=== PATIENT | male | born 1995 | race Caucasian/White ===

== ENCOUNTER 2019-11-09 21:48 | Emergency (ER) | payer BC, SELFPAY ==
[2019-11-09] VITALS (7 sets, daily range): BP systolic 154–197; BP diastolic 82–127; PULSE 58–100; RESP 14–16; TEMP 36.8; O2SAT 97–99; BMI 26.1
--- NOTE | 2019-11-09 21:56 | XR_ITS ---
PROCEDURE: XR SHOULDER LT MIN 2V CLINICAL INDICATION: shoulder injury COMPARISON: No exams were available for comparison FINDINGS: Anterior inferior impaction of the humeral head upon the inferior glenoid rim is demonstrated. IMPRESSION: Anterior inferior dislocation of the right shoulder as above Dictated by: Dereck Reid 11/10/2019 09:15 Electronically signed by Dereck Reid in [place] 11/10/2019 09:15
[2019-11-09 22:17] LABS: Basophils # 0.1 K/mm3 (0-0.2); Basophils % 0.5 % (0.1-2.0); Eosinophils # 0.1 K/mm3 (0.0-0.4); Eosinophils % 0.7 % (0.1-12.0); Hematocrit 45.3 % (42.0-52.0); Hemoglobin 15.5 g/dL (14.1-18.0); Lymphocytes % 43.3 % (10-50); Mean Corpuscular HGB Conc 34.3 g/dL (31.8-35.4); Mean Corpuscular Hemoglobin 30.1 pg (27.0-31.2); Mean Corpuscular Volume 87.8 fl (80-94); Mean Platelet Volume 7.2 fl (7.4-10.4); Monocytes # 0.6 K/mm3 (0.1-1.0); Monocytes % 5.5 % (1.7-9.3); Neutrophils # 5.8 K/mm3 (1.8-7.8); Platelet Count 282 K/mm3 (142-424); Red Blood Count 5.16 M/mm3 (4.60-6.20); White Blood Count 11.6 K/mm3 (4.8-10.8)
--- NOTE | 2019-11-09 22:20 | PC.NURSE ---
Decision made for conscious sedation for reduction of left shoulder - consent signed by patients father at this time.
[2019-11-09 22:40] LABS: Alanine Aminotransferase 25 U/L (12-78); Albumin Level 5.1 g/dl (3.5-5.0); Albumin/Globulin Ratio 1.8 (1.1-1.8); Alkaline Phosphatase 57 U/L (38-126); Anion Gap 15.6 mEq/L (5-15); Aspartate Amino Transferase 34 U/L (17-59); Bilirubin,Total 0.5 mg/dl (0.2-1.3); Blood Urea Nitrogen 22 mg/dl (9-20); Calcium 9.5 mg/dl (8.4-10.2); Carbon Dioxide 26 mmol/L (22.0-30.0); Chloride 102 mmol/L (98-107); Creatinine Clearance Estimated 102 mL/min (50-200); Estimated Glomerular Filt Rate 54 ml/min (>60); GFR (African American) 66 ML/MIN (>60); Globulin 2.8 g/dL (1.3-3.2); Glucose 129 mg/dl (74-100); Potassium 3.6 mmoL/L (3.5-5.1); Sodium 140 mmol/L (136-145); Total Protein,Serum 7.9 g/dl (6.3-8.2)
--- NOTE | 2019-11-09 22:42 | XR_ITS ---
PROCEDURE: XR SHOULDER LT 1V CLINICAL INDICATION: verify placement post reduction COMPARISON: XR SHOULDER LT MIN 2V from 11/09/2019 FINDINGS: Two-views remarkable for anatomic alignment of the glenohumeral joint. IMPRESSION: Anatomic alignment of the glenohumeral joint postreduction Dictated by: Dereck Reid 11/10/2019 09:14 Electronically signed by Dereck Reid in [facility] 11/10/2019 09:14
--- NOTE | 2019-11-09 22:45 | PC.NURSE ---
Conscious Sedation started at 2230 for a reduction of left shoulder for dislocation. Patient tolerated procedure throughout. Vital signs remained stable throughout.
--- NOTE | 2019-11-09 22:58 | HMH.EDUPEXT ---
ED Disposition Clinical Impression: Shoulder dislocation Qualifiers: Encounter type: initial encounter Laterality: left Qualified Code(s): S43.005A - Unspecified dislocation of left shoulder joint, initial encounter Disposition: Home, Self-Care Condition on Discharge: Good Instructions: DI for Shoulder Dislocation Additional Instructions: see pcp or ortho and rom as qasim Referrals: Provider,Referral, MD [Referring] - - Critical Care Critical Care Time: No Attestation: On 11/09/19, the high probability of a clinically significant, sudden or life threatening deterioration of the following system(s) required my full and direct attention, intervention and personal management. The time I documented below is in addition to time spent performing reported procedures but includes the following listed in this critical care notation. Medical Decision Making - Medical Records Medical records reviewed: Yes: I reviewed the patient's medical records. - Andrew Inquiry Pt receiving controlled substance: No Vital Signs: 11/09/19 21:49 11/09/19 22:49 Temperature 98.2 F Temperature Source Oral Pulse Rate [Right Brachial] 100 H 91 H Respiratory Rate 16 15 Blood Pressure [Right Arm] 154/92 H 176/98 H Blood Pressure Mean [Right Arm] 112 124 Blood Pressure Source [Right Arm] Automatic Cuff Automatic Cuff Blood Pressure Position [Right Arm] Sitting Sitting 02 Sat by Pulse Oximetry 98 99 Oxygen Delivery Method Room Air Room Air - Lab Data Lab results reviewed: Yes: I reviewed the patient's lab results. Lab Results 11/09/19 22:06: WBC 11.6 H, RBC 5.16, Hgb 15.5, Hct 45.3, MCV 87.8, MCH 30.1, MCHC 34.3, RDW 13.0, Plt Count 282, MPV 7.2 L, Neut % (Auto) 50.0, Lymph % (Auto) 43.3, [place] % (Auto) 5.5, Eos % (Auto) 0.7, Baso % (Auto) 0.5, Neut # (Auto) 5.8, Lymph # (Auto) 5.0 H, [place] # (Auto) 0.6, Eos # (Auto) 0.1, Baso # (Auto) 0.1 11/09/19 22:06: Sodium 140, Potassium 3.6, Chloride 102, Carbon Dioxide 26, Anion Gap 15.6 H, BUN 22 H, Creatinine 1.60 H, Estimated Creat Clear 102, Estimated GFR 54 L, Est GFR ( Amer) 66, Glucose 129 H, Calcium 9.5, Total Bilirubin 0.5, AST 34, ALT 25, Alkaline Phosphatase 57, Total Protein 7.9, Albumin 5.1 H, Globulin 2.8, Albumin/Globulin Ratio 1.8 Result diagrams: 11/09/19 22:06 11/09/19 22:06 Orders (Tests/Meds): ED MEDICATIONS Generic Name Dose Route Start Last Admin Trade Name Freq PRN Reason Stop Dose Admin Sodium Chloride 1,000 mls @ 999 mls/hr 11/09/19 22:00 11/09/19 22:16 Sod Chlor 0.9% 1000ml Bag IV 11/09/19 23:00 999 mls/hr .Q1H1M SAMY Administration Discontinued Medications Generic Name Dose Route Start Last Admin Trade Name Freq PRN Reason Stop Dose Admin Morphine Sulfate 4 mg 11/09/19 21:54 11/09/19 22:17 Morphine 4mg/Ml Syringe IV 11/09/19 21:55 4 mg ONCE ONE Administration Ondansetron HCl 4 mg 11/09/19 21:54 11/09/19 22:16 Zofran 4mg/2ml Vial IV 11/09/19 21:55 4 mg ONCE ONE Administration ORDERS Category Date Time Status XR shoulder LT 1V Stat Exams 11/09/19 22:42 Taken XR shoulder LT min 2V Stat Exams 11/09/19 21:56 Taken - Radiology Data #1 Image(s): Shoulder Image Reviewed: Yes I reviewed the patient's radiology image Preliminary Findings: Abnormal (dislocaation) Upper Extremity HPI - General Chief Complaint: Extremity Injury, Upper Stated Complaint: Dislocated shoulder Time Seen by Provider: 11/09/19 22:00 Mode of Arrival: Ambulatory Source of Information: Patient, Parent(s), Medical Record Limitations: No Limitations Description of Symptoms (Recalled from ER Triage Doc. by RN): Patient reports he was playing basketball with some friends and his arm got tangled up and injuried left shoulder. - History of Present Illness HPI narrative: acute injury lt shoulder playing basket ball complaint: injury to: left, shoulder Onset (ago): hour(s) Other Extremity Injury: Left: shoulder Othe
== END 2019-11-09 23:15 | disposition home or self-care (01) ==
PROVIDERS: Emergency Provider Emergency Medicine; PCP Family Medicine
DX: S43.005A Unspecified dislocation of left shoulder joint, initial encounter (principal); W51.XXXA Accidental striking against or bumped into by another person, initial encounter; Y93.67 Activity, basketball; Y92.89 Other specified places as the place of occurrence of the external cause
CPT/HCPCS: 23650; 73020; 73030; 80053; 85025; 96365; 96375; 99284; J2405

== ENCOUNTER 2019-12-30 08:00 | Outpatient (RCR) | payer BC, SELFPAY ==
--- NOTE | 2019-11-18 10:19 | HMH.OTOPEV ---
OT Inpatient Evaluation Rehab OT Outpatient Eval Start: 11/18/19 08:52 Freq: Status: Active Protocol: Document 11/18/19 10:00 RMARSHALL (Rec: 11/18/19 10:19 [facility] [id number] Electronically Signed By Antonio Flores OT 11/18/19 10:00 Outpatient Therapy Subjective History Subjective History Pt is a 24 year old male who reports to therapy for initial evaluation to left shoulder. Pt dislocated his left shoulder while playing basketball on 11/09/19. Pt went to ER and required a reduction for appropriate alignment. Pt demonstrates with slight decreased AROM and strength at left shoulder. Pt has minimal pain with certain movements around the long head of the bicep area ( anterior aspect of left shoulder). Chief Complaint Pain Symptom Type Ache,Dull Symptoms Relieved By Rest/Positioning Symptoms Aggravated By Physical Activity Prior Functional Limitations None Current Functional Limitations Reaching,Lifting,Housework, Recreation Activity Symptom Description Intermittent,Activity Dependent Level of pain today (0-10) 0 Pain scale - at its best (0-10) 0 Pain scale - at its worst (0-10) 3 Shoulder/Elbow Eval Shoulder Objective Measurements Shoulder ROM Left Shoulder Abduction Active Range of 135 degrees Motion (degrees) Shoulder Flexion Active Range of Motion 160 degrees (degrees) Query Text: Shoulder External Rotation Active Range 75 degrees of Motion (degrees) Shoulder Internal Rotation Active Range 60 degrees of Motion (degrees) pain with active ROM shoulder exam left standard pain with passive ROM shoulder exam left standard decreased ROM shoulder exam standard left Shoulder MMT Shoulder Abduction Strength Grade 4 Good Shoulder Extension Strength Grade 4 Good Shoulder Flexion Strength Grade 4 Good Shoulder Horizontal Abduction Strength 4 Good Grade Shoulder Horizontal Adduction Strength 4 Good Grade Shoulder External Rotation Strength 4 Good Grade Shoulder Internal Rotation Strength 4 Good Grade Shoulder Strength Patient Testing Si
--- NOTE | 2019-12-23 09:24 | HMH.RHREAS ---
Rehab Reassessment Rehab OP Re-assessment Start: 12/23/19 08:13 Freq: Status: Active Protocol: Document 12/23/19 08:13 JAVIER (Rec: 12/23/19 09:24 RMASHAL [id number]) Electronically Signed By Antonio Flores OT 12/23/19 08:13 Rehab Re-assessment Subjective Subjective I am doing much better. Objective Objective Notes Pt continues to be seen twice a week in order to address all left shoulder deficits. Pt engages in AROM/AAROM/ Strengthening exercises. Pt also received prom manual stretching to reach full range of motion and modalities in order to decrease pain/ inflammation. Assessment Progress Assessment Progressing as Expected Assessment Notes Pt reports his pain is at 2/10 at worst. Pt has slight discomfort when doing ER actively. Pt explains he feels he is 90% better since beginning therapy. Therapist has slowly advanced his strengthening exercises by working in all muscles in the arm, shoulder, and back. Current AROM L shoulder, MMT Flex: 170 degrees; 5- Abd: 165 degrees; 5- ER: 90 degrees; 5- IR: 80 degrees; 5- Patient goals met All short term goals have been met Goals Not Met LTG Revised Goals Continue progressing towards buttermaker helper goals written on initial evaluation. Plan Plan Continue with ot plan of care. Frequency of Therapy 2x's a week Duration of therapy 4 more weeks Time and Billing Re-Eval Time 15 Re-Eval Billing Units 1 PHYSICIAN CERTIFICATION: I certify the specified therapy services for Mat Garcia are required, authorized, and reviewed every 30 days.
== END 2019-12-30 09:10 | disposition home or self-care (01) ==
LOC: OT 08:00
PROVIDERS: PCP Family Medicine; Visit Provider Family Medicine
DX: S43.005A Unspecified dislocation of left shoulder joint, initial encounter (principal)
CPT/HCPCS: 97014; 97033; 97110; 97140; 97164; 97165; G0283

== ENCOUNTER → 2021-03-23 10:26 | Outpatient (CLI) | payer BC, SELFPAY | PROVIDERS: PCP Family Medicine; Visit Provider Nurse Practitioner | DX: Z20.822 Contact with and (suspected) exposure to COVID-19 (principal) | CPT/HCPCS: C9803; U0003; U0005 ==

== ENCOUNTER → 2021-05-18 13:26 | Outpatient (CLI) | payer BC, SELFPAY | PROVIDERS: Visit Provider Nurse Practitioner | DX: U07.1 COVID-19 (principal) | CPT/HCPCS: C9803; U0003; U0005 ==

== ENCOUNTER → 2021-05-22 11:20 | Outpatient (CLI) | payer BC, SELFPAY | PROVIDERS: PCP Family Medicine; Visit Provider Nurse Practitioner | DX: U07.1 COVID-19 (principal) | CPT/HCPCS: C9803; U0003; U0005 ==

== ENCOUNTER → 2021-10-30 12:17 | Outpatient (CLI) | payer BC, SELFPAY ==
--- NOTE | 2021-10-30 12:25 | XR_ITS ---
FINAL REPORT CLINICAL HISTORY: RT ANKLE SPRAIN, patient states pain on medial side, rolled toward lateral side, happened playing basketball yesterday FINDINGS: RIGHT ANKLE Three views of the right ankle were obtained. There is no acute fracture or dislocation. The joint spaces and mortise are intact. There is a small calcification inferior to the lateral malleolus. There is a small calcification inferior to the medial malleolus. There is lateral soft tissue swelling. IMPRESSION: Lateral soft tissue swelling with a small calcification inferior to the medial and lateral malleolus. Reviewed, Interpreted and Dictated by Hever Mckeon III, MD Transcribed by Bonnie Mcduffie Authenticated and [facility]
== END ==
PROVIDERS: PCP Family Medicine; Visit Provider Family Medicine
DX: S93.401A Sprain of unspecified ligament of right ankle, initial encounter (principal)
CPT/HCPCS: 73610

== ENCOUNTER 2021-12-07 08:30 | Outpatient (RCR) | payer BC, SELFPAY ==
--- NOTE | 2021-11-02 10:32 | HMH.PTOPEV ---
PT Outpatient Evaluation Rehab PT Outpatient Evaluation Start: 11/02/21 09:48 Freq: Status: Active Protocol: Document 11/02/21 10:18 JAMAR (Rec: 11/02/21 10:31 JAMAR [id number]) Electronically Signed By Matthias Chery, PT 11/02/21 10:18 Outpatient Therapy Subjective History Subjective History Patient is a 26 year old male presenting to outpatient PT with reports of acute R foot/ ankle pain S/P R inversion ankle sprain occurring 4 days ago. Initial injury occurred while playing basketball. Most recent x-rays negative for fracture. No other comorbidities to report. Chief Complaint Pain,Stiff,Swelling Symptom Type Sharp,Dull Symptoms Relieved By Rest/Positioning,Ice,OTC Meds, Elevation Symptoms Aggravated By Standing,Physical Activity, Walking Prior Functional Limitations None Current Functional Limitations Standing,Walking,Stairs Symptom Description Constant but Variable Level of pain today (0-10) 3 Pain scale - at its best (0-10) 2 Pain scale - at its worst (0-10) 7 Ankle/Foot Eval Gait Observation General Gait Pattern Observation Antalgic Gait,Decrease Weight Bear (R) Assistive Device Ambulation Assistive Device None Palpation Tenderness right Ankle/Foot Palpation Findings Tenderness Ankle/Foot Palpation Overall Comment med/lat malleoli 3/4 ROM Ankle/Foot Dorsiflexion w/Knee Extended -10 Active Range Motion (degrees) Ankle/Foot Plantar Flexion Active Range 42 of Motion (degrees) Ankle/Foot Eversion Active Range of 10 Motion (degrees) Ankle/Foot Inversion Active Range of 20 Motion (degrees) Ankle/Foot ROM Limitations Soft Tissue Tightness,Pain Great Toe ROM Reason Not Measured Within Functional Limits Accessory Movements Ankle Accessory Movements that Elicit Talus Dorsal [place],Talus Symptoms Ventral [place] MMT right Ankle Dorsiflexion Strength Grade 5 Normal Ankle Plantarflexion Strength Grade 5 Normal Foot Eversion Strength Grade 4 Good Foot Inversion Strength Grade 4 Good Special Tests Ankle Anterior Drawer Test Negative Right Ankle Eversion Test Negative Right Foot Interdigital Neuroma Test Negative Right Outpatient Therapy Assessment Impairments Problems/Impairmments Palpation Tenderness,Impaired Range of Motion,Impaired Strength,Impaired Gait Pattern
== END 2021-12-07 08:35 | disposition home or self-care (01) ==
LOC: PT 08:30
PROVIDERS: PCP Family Medicine; Visit Provider Family Medicine
DX: S93.401A Sprain of unspecified ligament of right ankle, initial encounter (principal)
CPT/HCPCS: 20560; 97010; 97014; 97016; 97035; 97110; 97112; 97163; 97760; G0283